=== PATIENT | male | born 1960 | race Caucasian/White ===

== ENCOUNTER 2024-09-08 08:28 | Day surgery (SDC) | payer BC, SELFPAY ==
[2024-09-08] VITALS (13 sets, daily range): BP systolic 130–183; BP diastolic 68–84; PULSE 48–70; RESP 10–20; TEMP 36.3–36.5; O2SAT 92–99; BMI 30.9
[2024-09-08] MEDS: 0.9 % SODIUM CHLORIDE 500 ML 500 ML 100 ML IV ×2 (08:30→09:49)
--- OUTSIDE RECORDS SUMMARY | 2024-09-08 08:31 | XMS_ITS | Clinical Summary ---
Author Organization [facility] Address [place], [place] [address] Care Team Providers Care Drapery Cutter Machine Name Role Phone Cheyenne Martinez MD Primary Care Provider Allergies No known active allergies Medications losartan-hydrochl orothiazide (HYZAAR) 100-12.5 mg tabletIndications :Essential hypertension Take 1 Tablet by mouth once daily. 100 Tablet 3 5 Active losartan-hydrochl orothiazide (HYZAAR) 100-25 mg tabletIndications :Essential hypertension Take 1 Tablet by mouth once daily. 30 Tablet 1 4 08/12/19 25 Discontinu ed(*Medica tion adjustment ) Active Problems Problem Noted Date Diagnosed Date Type 2 diabetes mellitus wit hout complication, without long-term current use of insulin 11/18/2021 Carpal tunnel syndrome, bilateral 01/26/2019 Mixed hyperlipidemia 01/26/2019 Essential hypertension 08/18/2018 Calculus of kidney 01/09/2006 Encounters Date Type Department Care Team Description 08/12/2024 8:15 AM DRYER FEEDER Office Visit [facility] [address] [place] [address] Cheyenne Martinez MD Preoperative Exam (1.28.25 Hernia Surgery, [facility] and clinic, Dr. Temi Jenkins, /[phone]) 08/12/2024 Travel 08/10/2024 Travel 07/27/2024 Travel 07/25/2024 2:20 PM DRYER FEEDER Office Visit [facility] [address] [place] [address] Cheyenne Martinez MD Pre-Op Exam (07/28/24) 07/25/2024 Telephone [facility] [address] [place] [address] Cheyenne Martinez MD Medication Management 07/25/2024 Telephone [facility] [address] [place] [address] Cheyenne Martinez MD Medication Management (losartan-hydrochlorot hiazide,) 07/25/2024 Telephone [facility] [address] [place] [address] Temi Jenkins MD 07/25/2024 Travel 07/23/2024 Travel 07/13/2024 8:00 AM DRYER FEEDER Office Visit [facility] [address] [place] [address] Temi Jenkins MD Consult (Right inguinal hernia) 07/12/2024 Travel from Last 3 Months Immunizations Name Administration Dates Next Due Tdap 01/11/2018 Social History Tobacco Use Types Packs/Day Years Used Date Smoking Tobacco: Never Smokeless Tobacco: Never Tobacco Cessation:Counseling Given: Yes Alcohol Use Standard Drinks/Week Comments Yes 0 (1 standard drink = 0.6 oz pur e alcohol) 2 beers a yr PHQ-2 Answer Date Recorded PHQ-2 TOTAL SCORE 0 10/04/2021 Social Connections Answer Date Recorded Do you often feel lonely or isolated from those around you? 0 07/23/2024 Financial Resource Strain Answer Date R ecorded Difficulty of Paying Living Expenses 3 07/25/2024 Difficulty of Paying Living Expenses Not on file 07/25/2024 Food Insecurity Answer Date Recorded Do you worry your food will run out before you are able to buy more? 1 07/23/2024 Transportation Needs Answer Date Record ed Does lack of transportation keep you from medica l appointments? 1 07/23/2024 Does lack of transportation keep you from work, meetings or getting things that you need? 1 07/23/2024 Housing Stability Answer Date Recorded What is your housing situation today? 1 07/23/2024 Utilities Answer Date Recorded Do you have trouble paying f or utilities (for example, heat, electricity, water, phone)? 1 07/23/2024 Sex and Gender Information Value Date Recorded Sex Assigned at Not on file Legal Sex Male 6:48 AM DRYER FEEDER Gender Identity Not on file Sexual Orientation Not on file Obstetrics History Last Filed Vital Signs Vital Sign Reading Time Taken Comments Blood Pressure 138/77 08/12/2024 8:17 AM DRYER FEEDER Pulse 70 08/12/2024 8:17 AM DRYER FEEDER Temperature 36.8 C (98.3 F) 07/25/2024 2:40 PM DRYER FEEDER Respiratory Rate - - Oxygen Saturation 100% 08/12/2024 8:17 AM DRYER FEEDER Inhaled Oxygen Concentration - - Weight 97.6 kg (215 lb 3.2 oz) 08/12/2024 8:17 A M DRYER FEEDER Height 179 cm (5' 10.47) 08/12/2024 8:17 AM DRYER FEEDER Body Mass Index 30.47 08/12/2024 8:17 AM DRYER FEEDER Plan of Treatment Health Maintenance Due Date Last Done Comments HIV for age 15-65 02/25/1975 Pneumococcal series for age 50+ (1 of 2 - PCV) 02/25/1979 Colonoscopy through age 75 02/25/2005 Zoster (shingles) series for age 50+ (1 of 2) 02/25/2010 RSV vaccine for adults or (1 - Risk 60-74 years 1-dose series) 2020 Depression screening for age 12+ 10/07/2022 10/07/2021, 10/04/2021, 01/26/2019 COVID-19 vaccine series ( - season) 2024 Influenza for age 50-64 04/03/2024 BMI (ht and wt on same day) for age 18+ 08/12/2025 08/12/2024, 07/25/2024, 10/17/2021, Additional history exists Tetanus booster 01/12/2028 01/11/2018 Lipids for age 45-75 07/25/2029 07/25/2024, 10/04/2021, 01/24/2019, Additional history exists Tdap Completed 01/11/2018 Hepatitis C screening for ag e 18-79 Completed 10/04/2021 Procedures Procedure Name Priority Date/Time Associated Diagnosis Comments BASIC METABOLIC PANEL Routine 08/12/2024 9:04 AM DRYER FEEDER Essential hypertension BASIC METABOLIC PANEL Routine 07/25/2024 2:28 PM DRYER FEEDER Type 2 diabetes mellitus without complication, without long-term current use of insulin (HC) LIPID PANEL W REFLEX MEASURED LDL Routine 07/25/2024 2:28 PM DRYER FEEDER Type 2 diabetes mellitus without complication, without long-term current use of insulin (HC) HEMOGLOBIN A1C MONITORING (POCT) Routine 07/25/2024 2:27 PM DRYER FEEDER Type 2 diabetes mellitus without complication, without long-term current use of insulin (HC) URINE ALBUMIN TO CREATININE RATIO, RANDOM Routine 07/25/2024 2:26 PM DRYER FEEDER Type 2 diabetes mellitus without complication, without long-term current use of insulin (HC) ANTI HCV Routine 10/04/2021 11:53 AM DRYER FEEDER Encounter for hepatitis C screening test for low risk patient from Last 3 Months or Most Recently Relevant to Health Maintenance Results * (ABNORMAL) BASIC METABOLIC PANEL (08/12/2024 9:04 AM DRYER FEEDER) Only the most recent of2 resultswithin the time period is included. GLUCOSE 145(H) 65 - 99 mg/dL [facility] Comment: Fasting reference interval For someone without known diabetes, a glucose value >125 mg/dL indicates that they may have diabetes and this should be confirmed with a follow-up test. UREA NITROGEN (BUN) 20 7 - 25 mg/dL [facility] CREATININE 0.94 0.70 - 1.35 mg/dL [facility] EGFR 91 > OR = 60 mL/min/1. 73m2 [facility] BUN/CREATININE RATIO SEE NOTE: 6 (calc) [facility] Comment: Not Reported: BUN and Creatinine are within reference range. SODIUM 140 135 - 146 mmol/L [facility] POTASSIUM 4.4 3.5 - 5.3 mmol/L [facility] CHLORIDE 99 98 - 110 mmol/L [facility] CARBON DIOXIDE 32 20 - 32 mmol/L [facility] ELECTROLYTE BALANCE 9 7 - 17 mmol/L (calc) [facility] CALCIUM 10.3 8.6 - 10.3 mg/dL [facility] Blood BLOOD SPECIMEN / Unknown 08/12/2024 9:04 AM DRYER FEEDER 08/12/2024 9:04 AM DRYER FEEDER us Cheyenne Martinez MD CHEMISTRY Final Resul t [facility] [address] [place] [address], [facility] [address] [place] [address] * (ABNORMAL) LIPID PANEL W REFLEX MEASURED LDL (07/25/2024 2:28 PM DRYER FEEDER) CHOLESTEROL, TOTAL 168 <200 mg/dL [facility] HDL CHOLESTEROL 40 > OR = 40 mg/dL [facility] TRIGLYCERIDES 114 <150 mg/dL [facility] LDL-CHOLESTEROL 107(H) mg/dL (calc) [facility] Comment: Reference range: <100 Desirable range <100 mg/dL for primary prevention; <70 mg/dL for patients with CHD or diabetic patients with > or = 2 CHD risk factors. LDL-C is now calculated using the Moi-Elia calculation, which is a validated novel method providing better accuracy than the Friedewald equation in the estimation of LDL-C. Moi CANTOR et al. ALEJANDRO. 2013;310(19): 0266-3967 (http://education.[employer].Living[employer]/faq/JGZ621) CHOL/HDLC RATIO 4.2 <5.0 (calc) [facility] NON HDL CHOLESTEROL 128 <130 mg/dL (calc) [facility] Comment: For patients with diabetes plus 1 major ASCVD risk factor, treating to a non-HDL-C goal of <100 mg/dL (LDL-C of <70 mg/dL) is considered a therapeutic option. Blood BLOOD SPECIMEN / Unknown 07/25/2024 2:28 PM DRYER FEEDER 07/25/2024 2:29 PM DRYER FEEDER Cheyenne Martinez MD CHEMISTRY Final Resul t Performing Organization Address City/[facility]/ZIP Co de Phone Number [facility] [address] [place] [address], [place] [phone] [facility] [address] [place] [address] * (ABNORMAL) POCT Hemoglobin A1C Monitoring (07/25/2024 2:27 PM DRYER FEEDER) POC HEMOGLOBIN A1C 6.4(H) <6.0 % OF TOTAL HGB [facility] Comment: Any point of care results exhibiting inconsistency with the patient's clinical status should be repeated using a different testing method. Blood BLOOD SPECIMEN / Unknown 07/25/2024 2:27 PM DRYER FEEDER 07/25/2024 2:28 PM DRYER FEEDER Cheyenne Martinez MD CHEMISTRY Final Resul t Performing Organization Address [facility] Co de Phone Number [facility] [address] [place] [address], [place] [phone] [facility] [address] [place] [address] * URINE ALBUMIN TO CREATININE RATIO, RANDOM (07/25/2024 2:26 PM DRYER FEEDER) ALB RAND URINE <12.0 mg/L 07/26/2024 1:26 AM DRYER FEEDER [facility] CREATININE,URINE 1.74 g/L 07/26/20 1:26 AM DRYER FEEDER [facility] ALBUMIN TO CREATININE RATIO,RAND UR 07/26/2024 1:26 AM DRYER FEEDER [facility] Comment:Urine Albumin below measurement range, unable to calculate. Urine URINE SPECIMEN / Unknown Non-Blood / Unknown 07/25/2024 2:26 PM DRYER FEEDER 07/25/2024 2:26 PM DRYER FEEDER Narrative [facility] - 07/26/2024 1:26 AM DRYER FEEDER If Albumin to Creatinine Ratio is elevated, consider the following: Elevations seen with incipient nephropathy associated with diabetes mellitus or hypertension. Stress, exercise,hematuria, and urinary tract infection may also produce elevated results. If clinically indicated, confirm with 24 Hour Albumin to Creatinine Ratio. Cheyenne Martinez MD URINE Final Resul t [facility] [address] [place] [address], * ANTI HCV (10/04/2021 11:53 AM DRYER FEEDER) HEPATITIS C ANTIBODY Non-React ashley Non-React ashley 10/04/2021 9:52 PM DRYER FEEDER [facility] Comment:Antibodies to HCV no t detected; does not exclude the possibility of exposure to HCV. Blood BLOOD SPECIMEN / Unknown Venipuncture / Unknown 10/04/2021 11:53 AM DRYER FEEDER 10/04/2021 11:57 AM DRYER FEEDER Cheyenne Martinez MD SEND OUTS Final Resul t [facility] [address] [place] [address], from Last 3 Months or Most Recently Relevant to Health Maintenance Insurance [facility] Care Teams Drapery Cutter Machine Relationship Specialty Start Date End Date Cheyenne Martinez MD [address] [place] [address] PCP - General Family Practice 11/29/21
[2024-09-08] MEDS: SODIUM CHLORIDE 0.9 % (FLUSH) 10 ML SYRINGE IVF (08:46)
--- NOTE | 2024-09-08 08:50 | W.PM.H&PU ---
History & Physical Update History & Physical Update H&P Reviewed and patient assessed: No changes noted
--- NOTE | 2024-09-08 09:14 | W.ANESCHARGE ---
Anesthesia Charges Start Date/Time Anesthesia Start Date: 09/08/24 Anesthesia Start Time: 09:00 Stop Date/Time Anesthesia Stop Date: 09/08/24 Anesthesia Stop Time: 11:17 Coding CPT Codes CPT Codes: ANESTH REPAIR OF HERNIA - 62404 ([id number]) P2 - PATIENT W/MILD SYST DISEASE, QK - MANUFACTURING PROCESS TECHNICIAN 2-4 CNCRNT ANES PROC, QX - LIVESTOCK NUTRITIONIST SVC W/ MD MED DIRECTION
[2024-09-08] MEDS: CEFAZOLIN 2 GM INJ IVP (09:17)
[2024-09-08] MEDS: BUPIVACAINE 0.25% 30 ML INJECTION (10:00)
--- NOTE | 2024-09-08 11:08 | PM.GSPRC ---
Operative Note Date of procedure: 09/08/24 Pre-op diagnosis: Right inguinal hernia Post-op diagnosis: Right inguinal hernia, direct and indirect Type of Procedure: Open right inguinal hernia repair with placement of mesh Indications: Patient is a 64-year-old male who presented to clinic with a symptomatic right inguinal hernia. Please see consultation note for full discussion. Risks and benefits of operative intervention were discussed at length with the patient. Risks included but was not limited to: Bleeding, infection, risk of damage to surrounding structures, possible need for additional procedures, risk of recurrence and postoperative complications such as pneumonia, pulmonary emboli or OK. All questions and concerns were addressed with the patient agreeing to proceed. Procedure Description: After discussing the risks and benefits of the procedure, the patient signed informed consent.? The operative site was marked and the patient was brought to the operating room and placed on the operating table in supine position.? Care was taken to pad the patient's pressure points.?? The patient was then intubated by anesthesia.?? The operative site was then prepped and draped in the usual sterile fashion.? A time-out was then performed. Local anesthetic was injected into the skin and subcutaneous tissue overlying the inguinal canal. An oblique incision would was made over the external ring. Dissection was carried down into the subcutaneous tissue using cautery until the external oblique fascia was encountered. This was cleared off. The external ring was identified and after injection of more local anesthetic, the external oblique was incised using a knife. This was extended using the Metzenbaum scissors with care to dissect the underlying cord structures away before cutting. The cord was cleared from the inside of the inguinal canal and looped with a Cameron drain. A large indirect inguinal hernia was identified. The hernia sac was dissected off of the cord structures. The hernia sac was very adherent to the surrounding tissues, making dissection difficult. Once it was almost fully reduced the sac was opened to ensure no intra-abdominal contents were present. The hernia sac was then ligated with a 3-0 Vicryl, transected and the stump reduced into the abdomen. A large direct defect was present as well. A large piece of soft Bard polypropylene mesh was obtained and cut to size. This was secured to the pubic tubercle using 2-0 Prolene and a double-arm suture. The Prolene was run along the inguinal ligament and superiorly along the transversalis fascia securing the tails behind the cord and recreating the internal ring. The repair was examined, there was an area reinforced just medial to the pubic tubercle with 2 interrupted 0 Nurolon sutures. Wound was examined for hemostasis, which was excellent. The external oblique fascia was then reapproximated with absorbable suture. The wound was then closed in layers including Mateo's fascia and the dermis with the cervical suture. The skin was then closed with a running subcuticular suture. Sterile dressings were applied. Instrument sponge and needle counts were correct at the end of the case. The patient was woken and taken to the PACU in stable condition. Findings: Large indirect and direct inguinal hernia, right. Anesthesia: GETA Surgeon: Temi Jenkins MD Estimated blood loss (mL): 25 Condition: stable Disposition: PACU
--- NOTE | 2024-09-08 11:17 | W.ANESCHARGE ---
Anesthesia Charges Start Date/Time Anesthesia Start Date: 09/08/24 Anesthesia Start Time: 09:00 Stop Date/Time Anesthesia Stop Date: 09/08/24 Anesthesia Stop Time: 11:17 Coding CPT Codes CPT Codes: ANESTH REPAIR OF HERNIA - 19365 ([id number]) P2 - PATIENT W/MILD SYST DISEASE, QK - ENGINEER DESIGN AND CONSTRUCTION 2-4 CNCRNT ANES PROC, QX - FLAT OPTICAL ELEMENT MAKER SVC W/ MD MED DIRECTION
[2024-09-08] MEDS: fentaNYL 100 MCG/2 ML inj 50 MCG IVP ×2 (11:30→11:41)
[2024-09-08] MEDS: HYDROCODONE-ACETAMIN 5-325 MG 1 TAB PO (12:09)
== END 2024-09-08 13:03 | disposition home or self-care (01) ==
PROVIDERS: PCP Family Medicine; Visit Provider Surgery
PROC: (CPT 49505; principal; 2024-09-08 09:30)
DX: K40.90 Unilateral inguinal hernia, without obstruction or gangrene, not specified as recurrent (principal)
CPT/HCPCS: 49505; 00830; 00832; A9270; C1781; J0665; J0690; J1100; J1885; J2250; J2371; J2405; J2704; J3010; J3490; J7030